=== PATIENT | female | born 1940 | race Asian ===

== ENCOUNTER 2018-07-27 11:04 | Inpatient (IN) ==
[2018-07-27] MEDS ORDERED: Labetalol HCl Inj 100 MG/20 ML Vial IV.PUSH ONE (12:12)
[2018-07-27] MEDS ORDERED: Sod Chloride 0.9% Inj 1,000 ML IV.CONT SCH (12:15)
[2018-07-27 12:53] LABS: Baso % (Auto) 0.4 % (0.0-2.0); Eos # (Auto) 0.1 th/mm3 (0.0-0.4); Eos % (Auto) 0.9 % (0.0-4.0); Hematocrit 41.4 % (35.0-46.0); Lymph # (Auto) 1.6 th/mm3 (1.0-4.8); Lymph % (Auto) 26.8 % (9.0-44.0); Mean Corpuscular HGB Conc 33.8 % (32.0-36.0); Mean Corpuscular Hemoglobin 31.8 pg (27.0-34.0); Mean Corpuscular Volume 94.1 fL (80.0-100.0); Mean Platelet Volume 7.9 fL (7.0-11.0); Mono # (Auto) 0.4 th/mm3 (0.0-0.9); Mono % (Auto) 6.9 % (0.0-8.0); Platelet Count 194 th/mm3 (150-450); Red Cell Distribution Width 12.4 % (11.6-17.2); White Blood Count 6.1 th/mm3 (4.0-11.0)
[2018-07-27 13:00] LABS: Activated Partial Thrombo Time 24.3 sec (24.3-30.1); INR 0.9 Ratio; Prothrombin Time 9.6 sec (9.8-11.6)
--- NOTE | 2018-07-27 13:00 | CT ---
EXAM DATE: 07/27/2018 12:23 PM EDT AGE/SEX: 77 years / Female INDICATIONS: Sudden onset of double vision. CLINICAL DATA: This is the patient's initial encounter. Patient reports that signs and symptoms have been present for 1 day and indicates a pain score of 0/10. MEDICAL/SURGICAL HISTORY: Hypertension. Diabetes. None. RADIATION DOSE: 56.35 CTDI (mGy) COMPARISON: [facility] – [place], CT HEAD W/O CONTRAST, 06/17/2018. . TECHNIQUE: CT of the head without contrast. Using automated exposure control and adjustment of the mA and/or kV according to patient size, radiation dose was kept as low as reasonably achievable to ob tain optimal diagnostic quality images. DICOM format image data is available electronically for revi ew and comparison. FINDINGS: Cerebrum: Mild to moderate diffuse cerebral atrophy. The ventricles are normal for degree of atrophy . No evidence of midline shift, mass lesion, hemorrhage or acute infarction. No extraaxial fluid col lections are seen. Posterior Fossa: The cerebellum and brainstem are intact. The 4th ventricle is midline. The cerebe llopontine angle is unremarkable. Extracranial: The visualized portion of the orbits is intact. Skull: The calvaria is intact. No evidence of skull fracture. CONCLUSION: 1. Senescent changes without acute intracranial abnormality. . Electronically signed by: Keron Beaulieu MD 07/27/2018 12:59 PM EDT
[2018-07-27 13:02] LABS: Bilirubin,Urine Negative (Negative); Clarity,Urine Clear (Clear); Color,Urine Straw (Yellw/Straw); Glucose,Urine (UA) 50 mg/dL (Negative); Leukocyte Esterase,Urine Negative (Negative); Nitrite,Urine Negative (Negative); Specific Gravity,Urine 1.003 (1.002-1.035)
--- NOTE | 2018-07-27 15:13 | ED ---
HPI General Chief Complaint: Neuro Symptoms/Deficit Stated Complaint: vision problems Time Seen by Provider: 07/27/18 11:40 History of Present Illness HPI Narrative: This is a 77-year-old female with history of hypertension, diabetes mellitus, present today with complaints of double vision earlier this morning. 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 She states on her way home at roughly 650 in the morning, she started seeing the lines on the road as double lines. She reports the yellow line looked as though there are 2 lines as well as the white line. She states that she was having a hard time interpreting the road. She states that she was able to get home however was concerned that she nearly had an accident. When she arrived home, she called her friend who came to pick her up and drove her to the hospital. Friend at the bedside states that the patient told her on the way here to the hospital she was also seen double lines on the road. There is no reported headache. There is no reported slurred speech. She denies any muscle weakness. She denies any coordination weakness. The patient has not had any previous episodes like this before. The patient does state that while sitting in bed she does not see any double objects. Related Data Home Medications Medication Instructions Recorded Confirmed glipizide 5 mg PO BID 06/17/18 07/27/18 lisinopril 20 mg PO BID 06/17/18 07/27/18 Allergies Allergy/AdvReac Type Severity Reaction Status Date / Time No Known Allergies Allergy Verified 07/27/18 11:51 Review of Systems Constitutional Reports system reviewed and no additional complaints, except as docu Eyes Reports blurry vision and Reports diplopia ENT Reports system reviewed and no additional complaints, except as docu Cardiovascular Denies chest pain, Denies palpitations and Denies dyspnea Respiratory Denies chest congestion and Denies dyspnea Gastrointestinal Denies abdominal pain, Denies nausea and Denies vomiting Genitourinary Reports system reviewed and no additional complaints, except as docu Musculoskeletal Denies muscle weakness, Denies numbness and Denies tingling Neurologic Denies abnormal gait, Denies vertigo, Denies dizziness, Denies focal weakness, Reports other visual disturbances and Denies weakness Endocrine Denies system reviewed and no additional complaints, except as docu and Denies polyuria [facility] Social History Social History Substance History: No History of Abuse Second Hand Smoke Exposure: No Smoking Status: Never smoker How Often Do You Have a Drink Containing Alcohol: Never Recent Travel in [place] within the Last 8 Weeks: No Recent Out of Country Travel within the Last 8 Weeks: No Immunization History Tetanus Immunization: >5 Years Hx Influenza Vaccine This Season: No Exam Narrative Exam Narrative: GENERAL: Well-developed well-nourished female no acute respiratory distress. SKIN: Focused skin assessment warm/dry. HEAD: Atraumatic. Normocephalic. EYES: Pupils equal and round. Extractor muscles appeared intact. There is no nystagmus both vertical or horizontal. No scleral icterus. No injection or drainage. ENT: No nasal bleeding or discharge. Mucous membranes pink and moist. NECK: Trachea midline. No JVD. Supple. No obvious carotid bruits. CARDIOVASCULAR: Regular rate and rhythm. No murmur appreciated. RESPIRATORY: No accessory muscle use. Clear to auscultation. Breath sounds equal bilaterally. GASTROINTESTINAL: Abdomen soft, non-tender, nondistended. Hepatic and splenic margins not palpable. MUSCULOSKELETAL: No obvious deformities. No clubbing. No cyanosis. No edema. NEUROLOGICAL: Awake and alert. No obvious cranial nerve deficits. Motor grossly within normal limits. Normal speech. Course Initial Documented Vital Signs Temperature 97.5 F L 07/27/18 11:15 Pulse Rate 89 07/27/18 11:15 Respiratory Rate 16 07/27/18 11:15 Blood Pressure 221/95 H 07/27/18 11:15 Pulse Oximetry 99 07/27/18 11:15 Last Documented Vital Signs Temperature 97.8 F 07/27/18 15:00 Pulse Rate 73 07/27/18 13:35 Respiratory Rate 16 07/27/18 13:35 Blood Pressure 168/78 H 07/27/18 15:00 Pulse Oximetry 99 07/27/18 15:00 NIH Stroke Scale NIH Stroke Scale Level of Consciousness: 0-Alert Orientation Questions: 0-Answers both correct Responds to Commands: 0-Both tasks correct Gaze Eye Movement: 0-Horizontal movement WNL Visual Nation: 0-No visual field defect Facial Movement: 0-Normal Motor Functions Arm LEFT: 0-No drift Motor Functions Arm RIGHT: 0-No drift Motor Functions Leg LEFT: 0-No drift Motor Functions Leg RIGHT: 0-No drift Limb Ataxia: 0-No ataxia Sensory Loss: 0-No sensory loss Best Language: 0-Normal Articulation: 0-Normal Extinction or Inattention Sensory: 0-Absent Total: 0 Medical Decision Making MDM Narrative Medical decision making narrative: 77-year-old female with a history of hypertension, diabetes mellitus, presents here today with an episode of diplopia while driving. Patient had a difficult time getting home because of the diplopia. Patient has no focal neurologic findings at this time. Her blood pressure was noted to be 221/95. She was given labetalol and her blood pressures come down to 168/78. The patient has no diplopia at the time of my evaluation. She will be admitted to the hospital for TIA workup. She also will be evaluated for uncontrolled hypertension. Given her symptoms and her comorbid conditions I believe this patient meets inpatient criteria. Medical Screen Exam Complete: Yes Emergency Medical Condition: Yes Differential Diagnosis Differential Diagnosis: After light abnormality versus TIA versus CVA Lab Data Result diagrams: 07/27/18 12:30 07/27/18 15:00 Lab Results 07/27/18 07/27/18 07/27/18 Range/Units 11:53 12:30 12:30 WBC 6.1 (4.0-11.0) th/mm3 RBC 4.40 (4.00-5.30) mil/mm3 Hgb 14.0 (11.6-15.3) gm/dL Hct 41.4 (35.0-46.0) % MCV 94.1 (80.0-100.0) fL MCH 31.8 (27.0-34.0) pg MCHC 33.8 (32.0-36.0) % RDW 12.4 (11.6-17.2) % Plt Count 194 (150-450) th/mm3 MPV 7.9 (7.0-11.0) fL Neut % (Auto) 65.0 (16.0-70.0) % Lymph % (Auto) 26.8 (9.0-44.0) % [place] % (Auto) 6.9 (0.0-8.0) % Eos % (Auto) 0.9 (0.0-4.0) % Baso % (Auto) 0.4 (0.0-2.0) % Neut # (Auto) 4.0 (1.8-7.7) th/mm3 Lymph # (Auto) 1.6 (1.0-4.8) th/mm3 [place] # (Auto) 0.4 (0.0-0.9) th/mm3 Eos # (Auto) 0.1 (0.0-0.4) th/mm3 Baso # (Auto) 0.0 (0.0-0.2) th/mm3 WBC Differential . Differential Comment Auto diff final PT 9.6 L (9.8-11.6) sec INR 0.9 Ratio APTT 24.3 (24.3-30.1) sec Sodium (136-145) meq/L Potassium (3.5-5.1) meq/L Chloride (98-107) meq/L Carbon Dioxide (21.0-32.0) meq/L Anion Gap (5-15) meq/L BUN (7-18) mg/dL Creatinine (0.50-1.00) mg/dL Estimated GFR (>89) mL/min POC Glucose 131 H (68-110) mg/dl Random Glucose (74-106) mg/dL Calcium (8.5-10.1) mg/dL Total Bilirubin (0.2-1.0) mg/dL AST (15-37) U/L ALT (10-53) U/L Alkaline Phosphatase (45-117) U/L Total Creatine Kinase (26-192) U/L Troponin I (0.02-0.05) ng/mL Total Protein (6.4-8.2) g/dL Albumin (3.4-5.0) g/dL Urine Color (Yellw/Straw) Urine Clarity (Clear) Urine pH (5.0-8.5) Ur Specific [place] (1.002-1.035) Urine Protein (Neg-Trace) mg/dL Urine Glucose (UA) (Negative) mg/dL Urine Ketones (Negative) mg/dL Urine Occult Blood (Negative) Urine Nitrate (Negative) Urine Bilirubin (Negative) Urine Urobilinogen (Less than 2) mg/dL Ur Leukocyte Esterase (Negative) Urine WBC (0-5) /hpf Micro UA Comment Ur Microscopic Review Urine Culture Comments 07/27/18 07/27/18 Range/Units 12:42 15:00 WBC (4.0-11.0) th/mm3 RBC (4.00-5.30) mil/mm3 Hgb (11.6-15.3) gm/dL Hct (35.0-46.0) % MCV (80.0-100.0) fL MCH (27.0-34.0) pg MCHC (32.0-36.0) % RDW (11.6-17.2) % Plt Count (150-450) th/mm3 MPV (7.0-11.0) fL Neut % (Auto) (16.0-70.0) % Lymph % (Auto) (9.0-44.0) % [place] % (Auto) (0.0-8.0) % Eos % (Auto) (0.0-4.0) % Baso % (Auto) (0.0-2.0) % Neut # (Auto) (1.8-7.7) th/mm3 Lymph # (Auto) (1.0-4.8) th/mm3 [place] # (Auto) (0.0-0.9) th/mm3 Eos # (Auto) (0.0-0.4) th/mm3 Baso # (Auto) (0.0-0.2) th/mm3 WBC Differential Differential Comment PT (9.8-11.6) sec INR Ratio APTT (24.3-30.1) sec Sodium 146 H (136-145) meq/L Potassium 4.8 (3.5-5.1) meq/L Chloride 111 H (98-107) meq/L Carbon Dioxide 27.7 (21.0-32.0) meq/L Anion Gap 7 (5-15) meq/L BUN 13 (7-18) mg/dL Creatinine 0.69 (0.50-1.00) mg/dL Estimated GFR 83 L (>89) mL/min POC Glucose (68-110) mg/dl Random Glucose 145 H (74-106) mg/dL Calcium 8.9 (8.5-10.1) mg/dL Total Bilirubin 0.4 (0.2-1.0) mg/dL AST 23 (15-37) U/L ALT 29 (10-53) U/L Alkaline Phosphatase 41 L (45-117) U/L Total Creatine Kinase 92 (26-192) U/L Troponin I Less than 0.02 L (0.02-0.05) ng/mL Total Protein 7.4 (6.4-8.2) g/dL Albumin 3.9 (3.4-5.0) g/dL Urine Color Straw (Yellw/Straw) Urine Clarity Clear (Clear) Urine pH 7.0 (5.0-8.5) Ur Specific [place] 1.003 (1.002-1.035) Urine Protein Negative (Neg-Trace) mg/dL Urine Glucose (UA) 50 (Negative) mg/dL Urine Ketones Trace H (Negative) mg/dL Urine Occult Blood Negative (Negative) Urine Nitrate Negative (Negative) Urine Bilirubin Negative (Negative) Urine Urobilinogen Less than 2 (Less than 2) mg/dL Ur Leukocyte Esterase Negative (Negative) Urine WBC Less than 1 (0-5) /hpf Micro UA Comment Culture not ind Ur Microscopic Review Not Reportable Urine Culture Comments Culture not ind Imaging Data Radiologist's impression: Head CT 07/27/18 12:12 CONCLUSION: 1. Senescent changes without acute intracranial abnormality. . Discharge Plan Discharge Disposition Patient Disposition: 30 Still Patient Discharge Details Diagnosis: Transient cerebral ischemia, Hypertension, uncontrolled, Diabetes mellitus Physicians Team ED Provider: Joe Martínez Primary Care Provider: Brianna Avelar Rxs /Orders / Referrals /Forms Prescriptions: No Action lisinopril 20 mg Tablet 20 mg PO BID RF: 0 glipizide 5 mg Tablet 5 mg PO BID RF: 0 Status ED Status: With Doctor
[2018-07-27 15:40] LABS: Alanine Aminotransferase 29 U/L (10-53); Albumin 3.9 g/dL (3.4-5.0); Anion Gap 7 meq/L (5-15); Aspartate Aminotransferase 23 U/L (15-37); Blood Urea Nitrogen 13 mg/dL (7-18); Calcium 8.9 mg/dL (8.5-10.1); Carbon Dioxide 27.7 meq/L (21.0-32.0); Chloride 111 meq/L (98-107); Glomerular Filtration Rate 83 mL/min (>89); Glucose,Random 145 mg/dL (74-106); Potassium 4.8 meq/L (3.5-5.1); Sodium 146 meq/L (136-145)
[2018-07-27 15:44] LABS: Alkaline Phosphatase 41 U/L (45-117); Total Protein 7.4 g/dL (6.4-8.2)
[2018-07-27 15:45] LABS: Creatine Kinase 92 U/L (26-192)
[2018-07-27] MEDS ORDERED: Dextrose 50% in Water 50 ML Vial IV.PUSH PRN (16:13)
[2018-07-27] MEDS ORDERED: hydrALAZINE 10 MG Tablet PO PRN (16:18)
--- NOTE | 2018-07-27 16:28 | ECG ---
Date Performed: 07/27/2018 Time Performed: 13:13:06 PTAGE: 77 years EKG: Sinus rhythm BORDERLINE LEFT AXIS DEVIATION BORDERLINE ECG No significant change from prior electrocardiogram. PREVIOUS TRACING : 10/02/1997 14.06 DOCTOR: Barrett Watson Interpretating Date/Time 07/27/2018 16:26:46
--- NOTE | 2018-07-27 17:38 | P.HP ---
History of Present Illness Primary Care Physician: Brianna Avelar MD History of Present Illness: This is a pleasant 77-year-old female with history of hypertension, diabetes mellitus, who came to the ED with complaints of double vision earlier this morning. 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 On her way home at roughly 6:50 in the morning, she started seeing the lines on the road as double lines. She reports the yellow line looked as though there are 2 lines as well as the white line. She states that she was having a hard time interpreting the road. She states that she was able to get home however was concerned that she nearly had an accident. When she arrived home, she called her friend who came to pick her up and drove her to the hospital. Friend at the bedside states that the patient told her on the way here to the hospital she was also seen double lines on the road. There is no reported headache. There is no reported slurred speech. She denies any muscle weakness. She denies any coordination weakness. The patient has not had any previous episodes like this before. The patient does state that while sitting in bed she does not see any double objects. Inpatient Certification: I certify that the inpatient services were ordered in accordance with Medicare regulations governing the order. This includes certification that hospital inpatient services are reasonable and necessary and in the case of services not specified as inpatient-only under 42 CFR 419.22(n), that they are appropriately provided as inpatient services in accordance to with the 2-midnight benchmark under 43 CFR 412.3(e) Estimated Total Length of Stay (Days): 3 Plans for Post Hospital Care: Not yet determined Review of Systems All other systems reviewed negative except as stated in HPI PMFSH - History History Provided By: Patient - Medical History Medical History: Medical History (Last Reviewed 07/27/18 @ 17:38 by Nida Simpson MD) Diabetes Hypertension - Surgical History Surgical History: Surgical History (Last Reviewed 07/27/18 @ 17:38 by Nida Simpson MD) No history of previous surgery - Family History Family History: Family History (Last Updated 07/27/18 @ 18:10 by Nida Simpson MD) Father Stroke - Tobacco History Second Hand Smoke Exposure: No Smoking Status: Never smoker - Alcohol History How Often Do You Have a Drink Containing Alcohol: Never - Substance Use History Substance History: No History of Abuse - Travel History Recent Travel in the [place] Within the Last 8 Weeks: No Recent Travel Out of the Country Within the Last 8 Weeks: No - Immunization History Tetanus Immunization: >5 Years Hx Influenza Vaccine This Season: No Medications and Allergies Active Medications: Active Medications Aspirin (Aspirin Chew) 81 mg PO DAILY [facility] Atorvastatin Calcium (Lipitor) 10 mg PO HS [facility] Dextrose (D50w Vial) 50 ml IV.PUSH UNSCH PRN PRN Reason: per Hypoglycemic Protocol Enalaprilat (Vasotec Inj) 1.25 mg IV.PUSH Q4H PRN PRN Reason: SBP> OR = 180, DBP> OR = 100 Glucagon (Glucagon Inj) 1 mg OTHER UNSCH PRN PRN Reason: per Hypoglycemic Protocol Hydralazine HCl (Apresoline) 10 mg PO QID PRN PRN Reason: SBP> 180 Sodium Chloride (Ns Inj) 1,000 mls @ 70 mls/hr IV.CONT .[id number] KEHINDE Stop: 07/28/18 02:32 Last Admin: 07/27/18 12:29 Dose: 70 mls/hr Lisinopril (Prinivil) 20 mg PO BID [facility] Sodium Chloride (Ns Flush) 2 ml IV.FLUSH PRN PRN PRN Reason: FLUSH AFTER USING IV ACCESS Last Admin: 07/27/18 12:29 Dose: 2 ml Allergies Allergy/AdvReac Type Severity Reaction Status Date / Time No Known Allergies Allergy Verified 07/27/18 11:51 Home Medications Medication Instructions Recorded Confirmed Type glipizide 5 mg PO BID 06/17/18 07/27/18 History lisinopril 20 mg PO BID 06/17/18 07/27/18 History Exam Vital signs: Vital Signs 07/27/18 11:15 07/27/18 12:12 07/27/18 12:33 Temperature 97.5 F L 97.8 F Pulse Rate 89 88 87 Respiratory Rate 16 16 Blood Pressure 221/95 H 133/95 H Pulse Oximetry 99 99 99 07/27/18 13:35 07/27/18 15:00 07/27/18 16:13 Temperature 97.8 F 97.8 F 97.8 F Pulse Rate 73 89 Respiratory Rate 16 20 Blood Pressure 172/77 H 168/78 H 163/81 H Pulse Oximetry 98 99 Intake & Output 07/26/18 07/27/18 07/27/18 18:59 06:59 18:59 Output Total 400 / 400 Balance -400 / -400 Weight 49.442 kg Output: Urine 400 / 400 Other: # Voids 1 Narrative: GENERAL: Pleasant 77 yo male, well nourished, well developed patient appears in nad. SKIN: Warm and dry. HEAD: Atraumatic. Normocephalic. EYES: Pupils equal and round. No scleral icterus. No injection or drainage. ENT: No nasal bleeding or discharge. Mucous membranes pink and moist. NECK: Trachea midline. No JVD. CARDIOVASCULAR: Regular rate and rhythm. RESPIRATORY: No accessory muscle use. Clear to auscultation. Breath sounds equal bilaterally. GASTROINTESTINAL: Abdomen soft, non-tender, nondistended. Hepatic and splenic margins not palpable. MUSCULOSKELETAL: Extremities without clubbing, cyanosis, or edema. No obvious deformities. NEUROLOGICAL: Awake and alert. No obvious cranial nerve deficits. Motor grossly within normal limits. Five out of 5 muscle strength in the arms and legs. Normal speech. PSYCHIATRIC: Appropriate mood and affect; insight and judgment normal. Results - Labs CBC & Chem 7: 07/27/18 12:30 07/27/18 15:00 Labs: Laboratory Results - last 24 hr 07/27/18 07/27/18 07/27/18 11:53 12:30 12:30 WBC 6.1 RBC 4.40 Hgb 14.0 Hct 41.4 MCV 94.1 MCH 31.8 MCHC 33.8 RDW 12.4 Plt Count 194 MPV 7.9 Neut % (Auto) 65.0 Lymph % (Auto) 26.8 [place] % (Auto) 6.9 Eos % (Auto) 0.9 Baso % (Auto) 0.4 Neut # (Auto) 4.0 Lymph # (Auto) 1.6 [place] # (Auto) 0.4 Eos # (Auto) 0.1 Baso # (Auto) 0.0 WBC Differential . Differential Comment Auto diff final PT 9.6 L INR 0.9 APTT 24.3 Sodium Potassium Chloride Carbon Dioxide Anion Gap BUN Creatinine Estimated GFR POC Glucose 131 H Random Glucose Calcium Total Bilirubin AST ALT Alkaline Phosphatase Total Creatine Kinase Troponin I Total Protein Albumin Urine Color Urine Clarity Urine pH Ur Specific [place] Urine Protein Urine Glucose (UA) Urine Ketones Urine Occult Blood Urine Nitrate Urine Bilirubin Urine Urobilinogen Ur Leukocyte Esterase Urine WBC Micro UA Comment Ur Microscopic Review Urine Culture Comments 07/27/18 07/27/18 07/27/18 12:42 15:00 16:32 WBC RBC Hgb Hct MCV MCH MCHC RDW Plt Count MPV Neut % (Auto) Lymph % (Auto) [place] % (Auto) Eos % (Auto) Baso % (Auto) Neut # (Auto) Lymph # (Auto) [place] # (Auto) Eos # (Auto) Baso # (Auto) WBC Differential Differential Comment PT INR APTT Sodium 146 H Potassium 4.8 Chloride 111 H Carbon Dioxide 27.7 Anion Gap 7 BUN 13 Creatinine 0.69 Estimated GFR 83 L POC Glucose 135 H Random Glucose 145 H Calcium 8.9 Total Bilirubin 0.4 AST 23 ALT 29 Alkaline Phosphatase 41 L Total Creatine Kinase 92 Troponin I Less than 0.02 L Total Protein 7.4 Albumin 3.9 Urine Color Straw Urine Clarity Clear Urine pH 7.0 Ur Specific [place] 1.003 Urine Protein Negative Urine Glucose (UA) 50 Urine Ketones Trace H Urine Occult Blood Negative Urine Nitrate Negative Urine Bilirubin Negative Urine Urobilinogen Less than 2 Ur Leukocyte Esterase Negative Urine WBC Less than 1 Micro UA Comment Culture not ind Ur Microscopic Review Not Reportable Urine Culture Comments Culture not ind - Imaging Impressions Head CT 07/27/18 12:12 CONCLUSION: 1. Senescent changes without acute intracranial abnormality. . Caprini VTE Risk Assessment Caprini VTE Risk Assessment: Moderate/High Risk (score >= 2) Caprini Risk Assessment Model: Point Value = 1 Point Value = 2 Point Value = 3 Point Value = 5 Age 41-60 Minor surgery BMI > 25 kg/m2 Swollen legs Varicose veins or History of unexplained or recurrent spontaneous Oral contraceptives or hormone replacement Sepsis (< 1 month) Serious lung disease, including pneumonia (< 1 month) Abnormal pulmonary function Acute myocardial infarction Congestive heart failure (< 1 month) History of inflammatory bowel disease Medical patient at bed rest Age 61-74 Arthroscopic surgery Major open surgery (> 45 min) Laparoscopic surgery (> 45 min) Malignancy Confined to bed (> 72 hours) Immobilizing plaster cast Central venous access Age >= 75 History of VTE Family history of VTE Factor V Leiden Prothrombin [id number] Lupus anticoagulant Anticardiolipin antibodies Elevated serum homocysteine Heparin-induced thrombocytopenia Other congenital or acquired thrombophilia Stroke (< 1 month) Elective arthroplasty Hip, pelvis, or leg fracture Acute spinal cord injury (< 1 month) Prophylaxis Regimen: Total Risk Factor Score Risk Level Prophylaxis Regimen 0-1 Low Early ambulation 2 Moderate Order ONE of the following: *Sequential Compression Device (SCD) *Heparin 5000 units SQ BID 3-4 Higher Order ONE of the following medications: *Heparin 5000 units SQ TID *Enoxaparin/Lovenox 40 mg SQ daily (WT < 150 kg, CrCl > 30 mL/min) *Enoxaparin/Lovenox 30 mg SQ daily (WT < 150 kg, CrCl > 10-29 mL/min) *Enoxaparin/Lovenox 30 mg SQ BID (WT < 150 kg, CrCl > 30 mL/min) AND/OR *Sequential Compression Device (SCD) 5 or more Highest Order ONE of the following medications: *Heparin 5000 units SQ TID (Preferred with Epidurals) *Enoxaparin/Lovenox 40 mg SQ daily (WT < 150 kg, CrCl > 30 mL/min) *Enoxaparin/Lovenox 30 mg SQ daily (WT < 150 kg, CrCl > 10-29 mL/min) *Enoxaparin/Lovenox 30 mg SQ BID (WT < 150 kg, CrCl > 30 mL/min) AND *Sequential Compression Device (SCD) Assessment and Plan - Plan 77-year-old female with a history of hypertension, diabetes mellitus, presented with an episode of diplopia while driving. Patient had a difficult time getting home because of the diplopia. Patient has no focal neurologic findings on admission. However her blood pressure was noted to be 221/95. She was given labetalol and her blood pressures come down to 168/78 while in the ED. The patient has no diplopia. Patient with HTN emergency and also TIA, will admit to neuro floor for further evaluation and treatment Diplopia / TIA Hypertensive emergency Given labetalol in the ED Vasotec IV and hydralazine PO prn if SBP> 180 CT brain reviewed no acute findings Neuro consulted Neuro checks Keep normotensive normoglycemic O2 supplement to keep O2 sat > 94% Check lipid panel, cbc, bmp, a1c ASA , statin , check liver panel Check B12 Monitor on telemetry Continue home meds as appropriate Check holter monitor, 2d echo, doppler US carotids DVT ppx scd/teds Code Status: full Discussed Condition With: patient, nurse
--- NOTE | 2018-07-27 18:18 | US ---
EXAM DATE: 07/27/2018 12:00 AM EDT AGE/SEX: 77 years / Female INDICATIONS: Sudden onset of double vision. CLINICAL DATA: This is the patient's initial encounter. Patient reports that signs and symptoms have been present for 1 day and indicates a pain score of 0/10. MEDICAL/SURGICAL HISTORY: Hypertension. Diabetes. None. COMPARISON: No prior exams available for comparison. VELOCITY PARAMETERS: ICA/CCA Ratio: Right 1.65 , Left 1.04 ICA: Right 112 cm/sec, Left 87 cm/sec CCA: Right 68 cm/sec, Left 84 cm/sec ECA: Right 127 cm/sec, Left 286 cm/sec Vertebral: Right 52 cm/sec antegrade, Left 61 cm/sec antegrade FINDINGS: Right Carotid: No significant plaque is visualized.The waveforms are within normal limits. Left Carotid: No significant plaque is visualized. The waveforms are within normal limits. Other: None. CONCLUSION: 1. Right Internal Carotid Artery: No significant plaque or stenosis. 2. Left Internal Carotid Artery: No significant plaque or stenosis. Electronically signed by: Joseph Deal MD 07/27/2018 6:16 PM EDT
--- NOTE | 2018-07-27 19:16 | MR ---
EXAM DATE: 07/27/2018 6:41 PM EDT AGE/SEX: 77 years / Female INDICATIONS: . Diplopia. CLINICAL DATA: This is the patient's initial encounter. Patient reports that signs and symptoms have been present for 1 day and indicates a pain score of 0/10. MEDICAL/SURGICAL HISTORY: Diabetes mellitus type II. Hypertension. None. COMPARISON: No prior exams available for comparison. TECHNIQUE: Multiplanar, multisequence examination of the brain was performed without and with 4 ml Ga davist (gadobutrol) contrast as a single exam dose. FINDINGS: There is no intracranial mass or midline shift. No hydrocephalus. No abnormal extra-axial fluid colle ctions are present. No abnormal enhancing lesions post contrast. No recent infarction on diffusion we ighted images. CONCLUSION: 1. Unremarkable MRI brain for age. Specifically no recent infarct, hydrocephalus or mass effect. Electronically signed by: Joseph Deal MD 07/27/2018 7:15 PM EDT
[2018-07-27] MEDS ORDERED: Gadobutrol PF 2 MMOL/2 ML Vial (for RAD) IV.SIG ONE (19:22)
--- NOTE | 2018-07-27 19:24 | MR ---
EXAM DATE: 07/27/2018 6:41 PM EDT AGE/SEX: 77 years / Female INDICATIONS: . Diplopia. CLINICAL DATA: This is the patient's initial encounter. Patient reports that signs and symptoms have been present for 1 day and indicates a pain score of 0/10. MEDICAL/SURGICAL HISTORY: Diabetes mellitus type II. Hypertension. None. COMPARISON: No prior exams available for comparison. TECHNIQUE: 3D [id number] MRA was performed. Source images, multiplanar STS MIP, and 3D volum e MIP reconstructions were reviewed. FINDINGS: There is excellent visualization of the major intracranial arteries out to the second-order branch ve ssels. There is no evidence for aneurysm. Anterior, middle and right posterior cerebral arteries pat ent. 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 CONCLUSION: 1. 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 No other significant abnormality identifi ed. Electronically signed by: Joseph Deal MD 07/27/2018 7:23 PM EDT
[2018-07-27] MEDS: Insulin NovoLOG Aspart Correctional Sugar Inj SQ SCH (20:25)
[2018-07-27] MEDS: Lisinopril 20 MG Tablet PO SCH (20:26)
--- NOTE | 2018-07-27 20:53 | MB ---
cc: Justin Celestin MD DATE: 07/27/2018 HISTORY OF PRESENT ILLNESS: The patient is a 77-year-old woman with a history of hypertension and diabetes, who had some double vision seeing the lines on a road double this morning. As far as I can tell, she did not see it up close. She came in to the ER, blood pressure was very high and when she was treated, the double vision appeared to go away. She does not have double vision at this time. REVIEW OF SYSTEMS: She denied any hypercholesterolemia, PA, stent, angioplasty, AFib, Coumadin; renal, hepatic or pulmonary disease, thyroid disease, lupus, ulcer, cancer, seizure, stroke, chest pain, palpitations, or headache. SOCIAL HISTORY: Not a smoker or drinker, lives alone. FAMILY HISTORY: Negative for cancer or seizure. Positive for stroke in her mother. MEDICATIONS: At home lisinopril and glipizide. Here, she is on 81 of aspirin and similar medications. PHYSICAL EXAMINATION: VITAL SIGNS: Afebrile 73, 16, 172/77. Highest blood pressure 221/95 now 163/81, sinus rhythm. NECK: There were no carotid bruits. HEART: Regular rate and rhythm. I did not detect a murmur. There were no vertebral bruits. NEUROLOGIC: Pupils are equal, visual buenrostro are full. Extraocular movements intact without nystagmus. Face is symmetric with normal sensation. Tongue is midline. No drift. Normal strength in upper and lower extremities bilaterally. DTRs trace throughout. Toes downgoing bilaterally. She is not ataxic on [id number]. Speech is fluent. She is visiting from [place]. LABORATORY DATA: CBC is normal. UA negative. Basic metabolic profile was essentially normal. LFTs normal. Troponin, CPK, albumin normal. Carotid ultrasound negative. She had an echocardiogram done in 2005 showed normal left atrial size, appeared to have a normal left ventricular size. Otherwise, there is no other major abnormality. IMPRESSION: Probably a hypertensive encephalopathy type picture, but we will check an MRI of the brain, MRA of the [place] of [place]. Otherwise, I thought she looked well. The baby aspirin is fine. We should check an LDL on her and we can recheck her echo, but if the echo and the MRI and MRA are negative, she can be discharged on the aspirin and follow up her LDL, see if she needs a statin. Get her blood pressure controlled down to 120/70. MD ELVIRA Zafar/erika , 06:25 PM , 06:32 PM
[2018-07-27 22:48] LABS: Free T4 (Free Thyroxine) 0.86 ng/dL (0.76-1.46); Thyroid Stimulating Hormone 3.1 uIU/mL (0.358-3.740)
[2018-07-28 06:19] LABS: Baso % (Auto) 0.6 % (0.0-2.0); Eos # (Auto) 0.1 th/mm3 (0.0-0.4); Eos % (Auto) 1.6 % (0.0-4.0); Hematocrit 40.7 % (35.0-46.0); Hemoglobin 13.9 gm/dL (11.6-15.3); Lymph # (Auto) 1.7 th/mm3 (1.0-4.8); Lymph % (Auto) 26.8 % (9.0-44.0); Mean Corpuscular HGB Conc 34.3 % (32.0-36.0); Mean Corpuscular Hemoglobin 31.8 pg (27.0-34.0); Mean Corpuscular Volume 92.8 fL (80.0-100.0); Mean Platelet Volume 7.3 fL (7.0-11.0); Mono # (Auto) 0.5 th/mm3 (0.0-0.9); Mono % (Auto) 7.7 % (0.0-8.0); Neut % (Auto) 63.3 % (16.0-70.0); Platelet Count 216 th/mm3 (150-450); Red Blood Count 4.38 mil/mm3 (4.00-5.30); Red Cell Distribution Width 12.3 % (11.6-17.2); White Blood Count 6.2 th/mm3 (4.0-11.0)
[2018-07-28 06:38] LABS: Anion Gap 11 meq/L (5-15); Blood Urea Nitrogen 16 mg/dL (7-18); Carbon Dioxide 25.3 meq/L (21.0-32.0); Chloride 107 meq/L (98-107); Chol/HDL Ratio 3.09 Ratio; Cholesterol 175 mg/dL (120-200); Glomerular Filtration Rate Greater Than 89 mL/min (>89); Glucose,Random 96 mg/dL (74-106); HDL Cholesterol 56.5 mg/dL (40.0-60.0); LDL Cholesterol,Calculated 101 mg/dL (0-99); Potassium 3.7 meq/L (3.5-5.1); Sodium 143 meq/L (136-145); Triglycerides 86 mg/dL (42-150)
[2018-07-28] MEDS: amLODIPine 5 MG Tablet PO SCH (09:44)
[2018-07-28] MEDS: Lisinopril 20 MG Tablet PO SCH ×3 (09:44→22:23)
[2018-07-28] MEDS: Insulin NovoLOG Aspart Correctional Sugar Inj SQ SCH ×4 (09:45→22:26)
--- NOTE | 2018-07-28 11:50 | P.PN ---
Subjective Interval history: Follow-up hypertensive urgency/hypertensive encephalopathy July 28, 2018-patient seen and examined, denies any headaches however reports some visual disturbances otherwise no chest pain or shortness of breath. Brain MRI negative. Physical Exam Vital signs: Vital Signs 07/27/18 12:12 07/27/18 12:33 07/27/18 13:35 Temperature 97.8 F 97.8 F Pulse Rate 88 87 73 Respiratory Rate 16 16 Blood Pressure 133/95 H 172/77 H Pulse Oximetry 99 99 98 07/27/18 15:00 07/27/18 16:13 07/27/18 18:20 Temperature 97.8 F 97.8 F 97.7 F Pulse Rate 89 78 Respiratory Rate 20 16 Blood Pressure 168/78 H 163/81 H 158/83 H Pulse Oximetry 99 99 07/27/18 20:00 07/27/18 20:02 07/27/18 22:00 Temperature 97.8 F 98.2 F Pulse Rate 75 77 Respiratory Rate 18 18 Blood Pressure 178/86 H 161/71 H Pulse Oximetry 97 98 98 07/28/18 00:00 07/28/18 02:10 07/28/18 04:00 Temperature 98 F 98.0 F Pulse Rate 70 74 66 Respiratory Rate 17 18 Blood Pressure 162/76 H 131/66 Pulse Oximetry 98 98 07/28/18 04:13 07/28/18 08:00 Temperature 97.6 F 98.6 F Pulse Rate 74 84 Respiratory Rate 17 16 Blood Pressure 152/68 H 163/67 H Pulse Oximetry 97 96 Intake & Output 07/27/18 07/28/18 07/28/18 18:59 06:59 18:59 Intake Total 1300 / 1300 Output Total 400 / 400 Balance -400 / -400 1300 / 1300 Weight 49.442 kg 49.6 kg Intake: IV 1000 / 1000 NS Inj 1,000 ML @ 70 mls/hr IV. 1000 / 1000 CONT .[id number] [facility] Rx#:[id number] Oral 300 / 300 Output: Urine 400 / 400 Other: # Voids 1 2 Weight On Admission 49.442 kg Narrative: GENERAL: NAD SKIN: Warm and dry. HEAD: Atraumatic. Normocephalic. EYES: Pupils equal and round. No scleral icterus. No injection or drainage. ENT: No nasal bleeding or discharge. Mucous membranes pink and moist. NECK: Trachea midline. No JVD. CARDIOVASCULAR: Regular rate and rhythm. RESPIRATORY: No accessory muscle use. Clear to auscultation. Breath sounds equal bilaterally. GASTROINTESTINAL: Abdomen soft, non-tender, nondistended. Hepatic and splenic margins not palpable. MUSCULOSKELETAL: Extremities without clubbing, cyanosis, or edema. No obvious deformities. NEUROLOGICAL: Awake and alert. No obvious cranial nerve deficits. Motor grossly within normal limits. Five out of 5 muscle strength in the arms and legs. Normal speech. PSYCHIATRIC: Appropriate mood and affect; insight and judgment normal. Results - Labs CBC & Chem 7: 07/28/18 04:36 07/28/18 04:36 Laboratory Results - last 24 hr 07/27/18 07/27/18 07/27/18 11:53 12:30 12:30 WBC 6.1 RBC 4.40 Hgb 14.0 Hct 41.4 MCV 94.1 MCH 31.8 MCHC 33.8 RDW 12.4 Plt Count 194 MPV 7.9 Neut % (Auto) 65.0 Lymph % (Auto) 26.8 [place] % (Auto) 6.9 Eos % (Auto) 0.9 Baso % (Auto) 0.4 Neut # (Auto) 4.0 Lymph # (Auto) 1.6 [place] # (Auto) 0.4 Eos # (Auto) 0.1 Baso # (Auto) 0.0 WBC Differential . Differential Comment Auto diff final ESR PT 9.6 L INR 0.9 APTT 24.3 Sodium Potassium Chloride Carbon Dioxide Anion Gap BUN Creatinine Estimated GFR POC Glucose 131 H Random Glucose Calcium Total Bilirubin AST ALT Alkaline Phosphatase Total Creatine Kinase Troponin I Total Protein Albumin Triglycerides Cholesterol LDL Cholesterol, Calc HDL Cholesterol Cholesterol/HDL Ratio Vitamin B12 TSH Free T4 Urine Color Urine Clarity Urine pH Ur Specific Page Urine Protein Urine Glucose (UA) Urine Ketones Urine Occult Blood Urine Nitrate Urine Bilirubin Urine Urobilinogen Ur Leukocyte Esterase Urine WBC Micro UA Comment Ur Microscopic Review Urine Culture Comments 07/27/18 07/27/18 07/27/18 12:42 15:00 16:32 WBC RBC Hgb Hct MCV MCH MCHC RDW Plt Count MPV Neut % (Auto) Lymph % (Auto) [place] % (Auto) Eos % (Auto) Baso % (Auto) Neut # (Auto) Lymph # (Auto) [place] # (Auto) Eos # (Auto) Baso # (Auto) WBC Differential Differential Comment ESR PT INR APTT Sodium 146 H Potassium 4.8 Chloride 111 H Carbon Dioxide 27.7 Anion Gap 7 BUN 13 Creatinine 0.69 Estimated GFR 83 L POC Glucose 135 H Random Glucose 145 H Calcium 8.9 Total Bilirubin 0.4 AST 23 ALT 29 Alkaline Phosphatase 41 L Total Creatine Kinase 92 Troponin I Less than 0.02 L Total Protein 7.4 Albumin 3.9 Triglycerides Cholesterol LDL Cholesterol, Calc HDL Cholesterol Cholesterol/HDL Ratio Vitamin B12 TSH Free T4 Urine Color Straw Urine Clarity Clear Urine pH 7.0 Ur Specific Page 1.003 Urine Protein Negative Urine Glucose (UA) 50 Urine Ketones Trace H Urine Occult Blood Negative Urine Nitrate Negative Urine Bilirubin Negative Urine Urobilinogen Less than 2 Ur Leukocyte Esterase Negative Urine WBC Less than 1 Micro UA Comment Culture not ind Ur Microscopic Review Not Reportable Urine Culture Comments Culture not ind 07/27/18 07/27/18 07/27/18 20:12 21:37 21:37 WBC RBC Hgb Hct MCV MCH MCHC RDW Plt Count MPV Neut % (Auto) Lymph % (Auto) [place] % (Auto) Eos % (Auto) Baso % (Auto) Neut # (Auto) Lymph # (Auto) [place] # (Auto) Eos # (Auto) Baso # (Auto) WBC Differential Differential Comment ESR 10 PT INR APTT Sodium Potassium Chloride Carbon Dioxide Anion Gap BUN Creatinine Estimated GFR POC Glucose 191 H Random Glucose Calcium Total Bilirubin AST ALT Alkaline Phosphatase Total Creatine Kinase Troponin I Total Protein Albumin Triglycerides Cholesterol LDL Cholesterol, Calc HDL Cholesterol Cholesterol/HDL Ratio Vitamin B12 999 H TSH 3.100 Free T4 0.86 Urine Color Urine Clarity Urine pH Ur Specific Page Urine Protein Urine Glucose (UA) Urine Ketones Urine Occult Blood Urine Nitrate Urine Bilirubin Urine Urobilinogen Ur Leukocyte Esterase Urine WBC Micro UA Comment Ur Microscopic Review Urine Culture Comments 07/28/18 07/28/18 07/28/18 04:36 04:36 07:51 WBC 6.2 RBC 4.38 Hgb 13.9 Hct 40.7 MCV 92.8 MCH 31.8 MCHC 34.3 RDW 12.3 Plt Count 216 MPV 7.3 Neut % (Auto) 63.3 Lymph % (Auto) 26.8 [place] % (Auto) 7.7 Eos % (Auto) 1.6 Baso % (Auto) 0.6 Neut # (Auto) 4.0 Lymph # (Auto) 1.7 [place] # (Auto) 0.5 Eos # (Auto) 0.1 Baso # (Auto) 0.0 WBC Differential . Differential Comment Auto diff final ESR PT INR APTT Sodium 143 Potassium 3.7 D Chloride 107 Carbon Dioxide 25.3 Anion Gap 11 BUN 16 Creatinine 0.64 Estimated GFR Greater than 89 POC Glucose 116 H Random Glucose 96 Calcium 9.0 Total Bilirubin AST ALT Alkaline Phosphatase Total Creatine Kinase Troponin I Total Protein Albumin Triglycerides 86 Cholesterol 175 LDL Cholesterol, Calc 101 H HDL Cholesterol 56.5 Cholesterol/HDL Ratio 3.09 Vitamin B12 TSH Free T4 Urine Color Urine Clarity Urine pH Ur Specific Page Urine Protein Urine Glucose (UA) Urine Ketones Urine Occult Blood Urine Nitrate Urine Bilirubin Urine Urobilinogen Ur Leukocyte Esterase Urine WBC Micro UA Comment Ur Microscopic Review Urine Culture Comments - Imaging Impressions Carotid Doppler Study 07/27/18 00:00 CONCLUSION: 1. Right Internal Carotid Artery: No significant plaque or stenosis. 2. Left Internal Carotid Artery: No significant plaque or stenosis. Head MRA 07/27/18 00:00 CONCLUSION: 1. 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 No other significant abnormality identified. Head CT 07/27/18 12:12 CONCLUSION: 1. Senescent changes without acute intracranial abnormality. . Head MRI 07/27/18 18:24 CONCLUSION: 1. Unremarkable MRI brain for age. Specifically no recent infarct, hydrocephalus or mass effect. 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
--- NOTE | 2018-07-28 13:08 | P.PNNEU ---
Subjective Subjective Comments: sr Active Medications: Active Medications Amlodipine Besylate (Norvasc) 5 mg PO DAILY [facility] Last Admin: 07/28/18 09:44 Dose: 5 mg Aspirin (Aspirin Chew) 81 mg PO DAILY [facility] Last Admin: 07/28/18 09:44 Dose: 81 mg Atorvastatin Calcium (Lipitor) 10 mg PO HS [facility] Last Admin: 07/27/18 20:24 Dose: 10 mg Dextrose (D50w Vial) 50 ml IV.PUSH UNSCH PRN PRN Reason: per Hypoglycemic Protocol Enalaprilat (Vasotec Inj) 1.25 mg IV.PUSH Q4H PRN PRN Reason: SBP> OR = 180, DBP> OR = 100 Glucagon (Glucagon Inj) 1 mg OTHER UNSCH PRN PRN Reason: per Hypoglycemic Protocol Hydralazine HCl (Apresoline) 10 mg PO QID PRN PRN Reason: SBP> 180 Insulin Aspart (Novolog Insulin Correctional Sugar Inj) 0 unit SQ [facility]; Protocol Last Admin: 07/28/18 09:45 Dose: Not Given Lisinopril (Prinivil) 20 mg PO BID [facility] Last Admin: 07/28/18 09:44 Dose: 20 mg Sodium Chloride (Ns Flush) 2 ml IV.FLUSH PRN PRN PRN Reason: FLUSH AFTER USING IV ACCESS Last Admin: 07/27/18 12:29 Dose: 2 ml Allergies/Adverse Reactions: Allergies Allergy/AdvReac Type Severity Reaction Status Date / Time No Known Allergies Allergy Verified 07/27/18 11:51 Physical Exam Vital signs: Vital Signs 07/27/18 13:35 07/27/18 15:00 07/27/18 16:13 Temperature 97.8 F 97.8 F 97.8 F Pulse Rate 73 89 Respiratory Rate 16 20 Blood Pressure 172/77 H 168/78 H 163/81 H Pulse Oximetry 98 99 07/27/18 18:20 07/27/18 20:00 07/27/18 20:02 Temperature 97.7 F 97.8 F Pulse Rate 78 75 Respiratory Rate 16 18 Blood Pressure 158/83 H 178/86 H Pulse Oximetry 99 97 98 07/27/18 22:00 07/28/18 00:00 07/28/18 02:10 Temperature 98.2 F 98 F 98.0 F Pulse Rate 77 70 74 Respiratory Rate 18 17 18 Blood Pressure 161/71 H 162/76 H 131/66 Pulse Oximetry 98 98 98 07/28/18 04:00 07/28/18 04:13 07/28/18 08:00 Temperature 97.6 F 98.6 F Pulse Rate 66 74 84 Respiratory Rate 17 16 Blood Pressure 152/68 H 163/67 H Pulse Oximetry 97 96 07/28/18 12:00 Temperature 97.5 F L Pulse Rate 77 Respiratory Rate 16 Blood Pressure 155/73 H Pulse Oximetry 98 Intake & Output 07/27/18 07/28/18 07/28/18 18:59 06:59 18:59 Intake Total 1300 / 1300 Output Total 400 / 400 Balance -400 / -400 1300 / 1300 Weight 49.442 kg 49.6 kg Intake: IV 1000 / 1000 NS Inj 1,000 ML @ 70 mls/hr IV. 1000 / 1000 CONT .[id number] [facility] Rx#:[id number] Oral 300 / 300 Output: Urine 400 / 400 Other: # Voids 1 2 Weight On Admission 49.442 kg Narrative: vff eomi no nystag face nl gait nl speech nl can count fingers all the way down [place] still co some blurry vision at distance no diplopia Objective Laboratory Results - last 24 hr 07/27/18 07/27/18 07/27/18 15:00 16:32 20:12 WBC RBC Hgb Hct MCV MCH MCHC RDW Plt Count MPV Neut % (Auto) Lymph % (Auto) [place] % (Auto) Eos % (Auto) Baso % (Auto) Neut # (Auto) Lymph # (Auto) [place] # (Auto) Eos # (Auto) Baso # (Auto) WBC Differential Differential Comment ESR Sodium 146 H Potassium 4.8 Chloride 111 H Carbon Dioxide 27.7 Anion Gap 7 BUN 13 Creatinine 0.69 Estimated GFR 83 L POC Glucose 135 H 191 H Random Glucose 145 H Calcium 8.9 Total Bilirubin 0.4 AST 23 ALT 29 Alkaline Phosphatase 41 L Total Creatine Kinase 92 Troponin I Less than 0.02 L Total Protein 7.4 Albumin 3.9 Triglycerides Cholesterol LDL Cholesterol, Calc HDL Cholesterol Cholesterol/HDL Ratio Vitamin B12 TSH Free T4 07/27/18 07/27/18 07/28/18 21:37 21:37 04:36 WBC 6.2 RBC 4.38 Hgb 13.9 Hct 40.7 MCV 92.8 MCH 31.8 MCHC 34.3 RDW 12.3 Plt Count 216 MPV 7.3 Neut % (Auto) 63.3 Lymph % (Auto) 26.8 [place] % (Auto) 7.7 Eos % (Auto) 1.6 Baso % (Auto) 0.6 Neut # (Auto) 4.0 Lymph # (Auto) 1.7 [place] # (Auto) 0.5 Eos # (Auto) 0.1 Baso # (Auto) 0.0 WBC Differential . Differential Comment Auto diff final ESR 10 Sodium Potassium Chloride Carbon Dioxide Anion Gap BUN Creatinine Estimated GFR POC Glucose Random Glucose Calcium Total Bilirubin AST ALT Alkaline Phosphatase Total Creatine Kinase Troponin I Total Protein Albumin Triglycerides Cholesterol LDL Cholesterol, Calc HDL Cholesterol Cholesterol/HDL Ratio Vitamin B12 999 H TSH 3.100 Free T4 0.86 07/28/18 07/28/18 07/28/18 04:36 07:51 12:18 WBC RBC Hgb Hct MCV MCH MCHC RDW Plt Count MPV Neut % (Auto) Lymph % (Auto) [place] % (Auto) Eos % (Auto) Baso % (Auto) Neut # (Auto) Lymph # (Auto) [place] # (Auto) Eos # (Auto) Baso # (Auto) WBC Differential Differential Comment ESR Sodium 143 Potassium 3.7 D Chloride 107 Carbon Dioxide 25.3 Anion Gap 11 BUN 16 Creatinine 0.64 Estimated GFR Greater than 89 POC Glucose 116 H 260 H Random Glucose 96 Calcium 9.0 Total Bilirubin AST ALT Alkaline Phosphatase Total Creatine Kinase Troponin I Total Protein Albumin Triglycerides 86 Cholesterol 175 LDL Cholesterol, Calc 101 H HDL Cholesterol 56.5 Cholesterol/HDL Ratio 3.09 Vitamin B12 TSH Free T4 Review/Management - Review/Management Plan: imp no cva i looked at mra left safety risk lead looked ok asa and statin esr ok plan fu echo and if bp to 120/70 and echo neg can dc no cva need optho fu
[2018-07-28 13:25] LABS: Hemoglobin A1c 9.2 % (4.3-6.0)
--- NOTE | 2018-07-28 16:08 | ECHRPT ---
Indication: CVA/TIA CONCLUSIONS Normal left ventricular size. Wall thickness is normal. The left ventricular systolic function is normal with an estimated ejection fraction in the range of 55-60%. Trace mitral valve regurgitation. There is trace tricuspid valve regurgitation. BP: / HR: Rhythm: Sinus MEASUREMENTS (Male / Female) Normal Values Technical Quality:Fair 2D ECHO LV Diastolic Diameter PLAX 4.2 cm 4.2 - 5.9 / 3.9 - 5.3 cm LV Systolic Diameter PLAX 2.9 cm IVS Diastolic Thickness 0.8 cm 0.6 - 1.0 / 0.6 - 0.9 cm LVPW Diastolic Thickness 0.8 cm 0.6 - 1.0 / 0.6 - 0.9 cm LV Relative Wall Thickness 0.4 RV Internal Dim ED PLAX 2.1 cm LVOT Diameter 1.8 cm Aortic Root Diameter 2.7 cm LA Systolic Diameter LX 3.1 cm 3.0 - 4.0 / 2.7 - 3.8 cm M-MODE AV Cusp Separation MM 1.7 cm DOPPLER AV Peak Velocity 123.0 cm/s AV Peak Gradient 6.1 mmHg AV Mean Gradient 3.0 mmHg AV Velocity Time Integral 23.5 cm LVOT Peak Velocity 84.2 cm/s LVOT Peak Gradient 2.8 mmHg LVOT Velocity Time Integral 17.7 cm AV Area Cont Eq vti 1.9 cm AV Area Cont Eq pk 1.7 cm Mitral E Point Velocity 79.0 cm/s Mitral A Point Velocity 105.0 cm/s Mitral E to A Ratio 0.8 LV E' Lateral Velocity 7.6 cm/s Mitral E to LV E' Lateral Ratio 10.4 LV E' Septal Velocity 5.7 cm/s Mitral E to LV E' Septal Ratio 14.0 PV Peak Velocity 49.6 cm/s PV Peak Gradient 1.0 mmHg FINDINGS LEFT VENTRICLE Normal left ventricular size. Wall thickness is normal. The left ventricular systolic function is normal with an estimated ejection fraction in the range of 55-60%. RIGHT VENTRICLE Normal right ventricular size and systolic function. LEFT ATRIUM The left atrial size is normal. RIGHT ATRIUM The right atrial size is normal. ATRIAL SEPTUM No atrial level shunt is demonstrated by color flow Doppler interrogation. AORTA The aortic root and proximal ascending aorta are normal in size on limited imaging. MITRAL VALVE Trace mitral valve regurgitation. AORTIC VALVE Trileaflet aortic valve. No aortic valve stenosis or regurgitation. TRICUSPID VALVE There is trace tricuspid valve regurgitation. PULMONARY VALVE No pulmonary valve regurgitation or stenosis. VESSELS The inferior vena cava is normal in size. PERICARDIUM No pericardial effusion. Zion Osorio MD (Electronically Signed) Final Date:28 July 2018 16:07
--- NOTE | 2018-07-29 08:22 | P.PN ---
Subjective Interval history: Follow-up hypertensive urgency/hypertensive encephalopathy July 28, 2018-patient seen and examined, denies any headaches however reports some visual disturbances otherwise no chest pain or shortness of breath. Brain MRI negative. July 29, 2018-patient seen and examined, BP stable, denies any headache, not mentioning any double vision at this point. No acute event overnight. Looking for discharge home. Physical Exam Vital signs: Vital Signs 07/28/18 12:00 07/28/18 15:39 07/28/18 16:00 Temperature 97.5 F L 98.2 F Pulse Rate 77 70 76 Respiratory Rate 16 16 Blood Pressure 155/73 H 179/79 H Pulse Oximetry 98 96 07/28/18 20:00 07/29/18 00:00 07/29/18 04:00 Temperature 97.6 F 97.6 F 97.7 F Pulse Rate 75 71 76 Respiratory Rate 18 18 18 Blood Pressure 130/69 147/70 H 126/70 Pulse Oximetry 99 96 98 07/29/18 05:47 Temperature Pulse Rate 69 Respiratory Rate Blood Pressure Pulse Oximetry Intake & Output 07/28/18 07/29/18 07/29/18 18:59 06:59 18:59 Weight 49.6 kg Other: # Voids 3 Narrative: GENERAL: NAD SKIN: Warm and dry. HEAD: Atraumatic. Normocephalic. EYES: Pupils equal and round. No scleral icterus. No injection or drainage. ENT: No nasal bleeding or discharge. Mucous membranes pink and moist. NECK: Trachea midline. No JVD. CARDIOVASCULAR: Regular rate and rhythm. RESPIRATORY: No accessory muscle use. Clear to auscultation. Breath sounds equal bilaterally. GASTROINTESTINAL: Abdomen soft, non-tender, nondistended. Hepatic and splenic margins not palpable. MUSCULOSKELETAL: Extremities without clubbing, cyanosis, or edema. No obvious deformities. NEUROLOGICAL: Awake and alert. No obvious cranial nerve deficits. Motor grossly within normal limits. Five out of 5 muscle strength in the arms and legs. Normal speech. PSYCHIATRIC: Appropriate mood and affect; insight and judgment normal. 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 2D echo with EF 55-60% Appreciate input from neurology, continue with aspirin Labile benign hypertension BP controlled on Norvasc 5 mg daily and continue with lisinopril Diabetes type 2 Hold oral hypoglycemic agent, continue with insulin sliding scale Hemoglobin A1c pending Diplopia Outpatient follow-up with ophthalmology Hyperlipidemia Continue low-dose Lipitor Discharge patient to home Condition on discharge: Improved Regular Diet as tolerated Ad Lucrecia activity Rx written: Norvasc 5 mg daily, aspirin 81 mg daily, Lipitor 10 mg at bedtime Follow-up with primary care physician in 1 week Needs outpatient follow-up with ophthalmology
[2018-07-29 08:24] VITALS: RESP 20; O2SAT 99
[2018-07-29] MEDS: Lisinopril 20 MG Tablet PO SCH (09:00)
[2018-07-29] MEDS: amLODIPine 5 MG Tablet PO SCH (09:00)
[2018-07-29] MEDS: Insulin NovoLOG Aspart Correctional Sugar Inj SQ SCH (09:01)
--- NOTE | 2018-07-29 11:40 | P.PNNEU ---
Subjective Medication List: sr Active Medications: Active Medications Amlodipine Besylate (Norvasc) 5 mg PO DAILY [facility] Last Admin: 07/29/18 09:00 Dose: 5 mg Aspirin (Aspirin Chew) 81 mg PO DAILY [facility] Last Admin: 07/29/18 09:00 Dose: 81 mg Atorvastatin Calcium (Lipitor) 10 mg PO HS [facility] Last Admin: 07/28/18 22:14 Dose: 10 mg Dextrose (D50w Vial) 50 ml IV.PUSH UNSCH PRN PRN Reason: per Hypoglycemic Protocol Enalaprilat (Vasotec Inj) 1.25 mg IV.PUSH Q4H PRN PRN Reason: SBP> OR = 180, DBP> OR = 100 Glucagon (Glucagon Inj) 1 mg OTHER UNSCH PRN PRN Reason: per Hypoglycemic Protocol Hydralazine HCl (Apresoline) 10 mg PO QID PRN PRN Reason: SBP> 180 Insulin Aspart (Novolog Insulin Correctional Sugar Inj) 0 unit SQ ACHS [facility]; Protocol Last Admin: 07/29/18 09:01 Dose: 1 unit Lisinopril (Prinivil) 20 mg PO BID [facility] Last Admin: 07/29/18 09:00 Dose: 20 mg Sodium Chloride (Ns Flush) 2 ml IV.FLUSH PRN PRN PRN Reason: FLUSH AFTER USING IV ACCESS Last Admin: 07/27/18 12:29 Dose: 2 ml Allergies/Adverse Reactions: Allergies Allergy/AdvReac Type Severity Reaction Status Date / Time No Known Allergies Allergy Verified 07/27/18 11:51 Physical Exam Vital signs: Vital Signs 07/28/18 12:00 07/28/18 15:39 07/28/18 16:00 Temperature 97.5 F L 98.2 F Pulse Rate 77 70 76 Respiratory Rate 16 16 Blood Pressure 155/73 H 179/79 H Pulse Oximetry 98 96 07/28/18 20:00 07/29/18 00:00 07/29/18 04:00 Temperature 97.6 F 97.6 F 97.7 F Pulse Rate 75 71 76 Respiratory Rate 18 18 18 Blood Pressure 130/69 147/70 H 126/70 Pulse Oximetry 99 96 98 07/29/18 05:47 07/29/18 08:00 Temperature 97.5 F L Pulse Rate 69 71 Respiratory Rate 20 Blood Pressure 127/62 Pulse Oximetry 99 Intake & Output 07/28/18 07/29/18 07/29/18 18:59 06:59 18:59 Weight 49.6 kg Other: # Voids 3 Narrative: vff no diplopia accross room bp much better nl gait Objective Laboratory Results - last 24 hr 07/28/18 07/28/18 07/28/18 04:36 12:18 16:54 POC Glucose 260 H 153 H Hemoglobin A1c 9.2 H 07/28/18 07/29/18 22:25 08:06 POC Glucose 151 H 156 H Hemoglobin A1c Review/Management - Review/Management Plan: imp no cva i looked at mra left collar trimmer looked ok asa and statin esr ok plan fu echo and if bp to 120/70 and echo neg can dc no cva need optho fu 07/29/18 stable neuro needs optho fu echo nl asa 81 ok dc
[2018-07-29 12:10] VITALS: BP 152/67; PULSE 82; TEMP 97.4
--- NOTE | 2018-07-30 15:19 | HM ---
Date Performed: 07/28/2018 Time Performed: 13:13:00 HOOKUP DATE: 07/28/18 01:13:00 PM Sat ANALYSIS START TIME: 07/28/2018 1:18:00 PM ANALYSIS END TIME: 07/29/2018 10:59:07 AM PATIENT AGE: 77 PATIENT HEIGHT PATIENT WEIGHT DRUG LIST PATIENT DIAGNOSIS TEST NARRATIVE: The patient's average heart rate was 77 BPM. No episodes of tachycardia wer e noted. No episodes of bradycardia were noted. No pauses exceeding 2.0 seconds were noted. No ventricular ectopics were noted. 2 supraventricular ectopics, which represented < 1% of the to do beat count, were noted. The highest supraventricular ectopic frequency occurred from 06:00 AM to 07:00 AM Sun. During this time 1 SVE(s) occurred. No episodes of ST depression (defined as -1.0 mm or more) were noted in channel 1. No episodes of ST depression (defined as -1.0 mm or more) were noted in channel 2. No episodes of ST depression (defined as -1.0 mm or more) were noted in channel 3. TEST INTERPRETATION: Th patient was monitored for approximately 24 hours. Minimum heart rate of 64bpm, maximum heart rate of 110bpm and average heart rate of 77bpm. The Underlying rhythm is normal sinus. There were 2 PAC's. There was no atrial fibrillation Benign 24hr monitor Signed by : Jessica Camp
== END 2018-07-29 12:02 | disposition home or self-care (01) ==
LOC: NEPC 11:04 → NEDA 16:26 → N05 19:30
PROVIDERS: ADMIT Hospitalist; ATTEND Hospitalist
DX: Z82.3 Family history of stroke; H53.2 Diplopia; I67.4 Hypertensive encephalopathy; Z79.84 Long term (current) use of oral hypoglycemic drugs; I10 Essential (primary) hypertension; E78.5 Hyperlipidemia, unspecified; I16.0 Hypertensive urgency; E11.9 Type 2 diabetes mellitus without complications